=== PATIENT | male | born 1960 | race Asian ===

== ENCOUNTER 2021-01-20 12:14 | Outpatient (REF) | payer MEDICARE, SELFPAY ==
[2021-01-20 13:00] LABS: Hematocrit 44.6 % (42-52); Hemoglobin 14.9 g/dl (14.0-18.0); Mean Corpuscular HGB Conc 33.4 g/dl (31.0-36.0); Mean Corpuscular Hemoglobin 28.3 pg (27.0-33.0); Mean Corpuscular Volume 84.8 fL (80-98); Mean Platelet Volume 9.3 fL (9.4-12.4); Platelet Count 260 X10*3/uL (160-400); Red Blood Count 5.26 X10*6/uL (4.60-5.80); Red Cell Distribution Width 13.4 % (11.0-16.0)
[2021-01-20 13:19] LABS: Alanine Aminotransferase 15 U/L (0-40); Alkaline Phosphatase 88 U/L (39-117); Anion Gap 10 (12-20); Aspartate Amino Transferase 19 U/L (5-37); Bilirubin Direct 0.2 mg/dL (0.0-0.5); Bilirubin Total 0.3 mg/dL (0.0-1.0); Blood Urea Nitrogen 14 mg/dL (9-16); Calcium 9.1 mg/dL (8.4-10.2); Carbon Dioxide 27 mmol/L (22-29); Chloride 106 mmol/L (96-108); Cholesterol 193 mg/dL; Estimated Glomerular Filt Rate > 60; Glucose Random 84 mg/dL (60-115); HDL Cholesterol 33 mg/dL; LDL Cholesterol Calculated 137 mg/dl; Potassium 4.7 mmol/L (3.3-5.1); Sodium 138 mmol/L (135-145); Total Protein 7.1 g/dL (6.5-8.0); Triglycerides 116 mg/dL
[2021-01-20 13:40] LABS: Thyroid Stimulating Hormone 0.49 uIU/mL (0.32-4.0)
== END 2021-01-20 12:15 | disposition home or self-care (01) ==
LOC: HO.LAB 12:14
PROVIDERS: PCP Internal Medicine; Visit Provider Internal Medicine
DX: Z00.00 Encounter for general adult medical examination without abnormal findings (principal); Z12.11 Encounter for screening for malignant neoplasm of colon
CPT/HCPCS: 36415; 80048; 80061; 80076; 84443; 85027

== ENCOUNTER 2021-01-21 12:00 | Outpatient (REF) | payer MEDICARE, SELFPAY ==
[2021-01-21 12:07] LABS: Glucose Urine UA NEG (NEG); Leukocyte Esterase Urine NEG (NEG); Nitrite Urine NEG (NEG); Urine Blood NEG (NEG); Urine Ketones NEG (NEG); Urine Protein NEG (NEG-TRACE)
[2021-01-21 12:10] LABS: Appearance Urine CLEAR; Color Urine YELLOW
== END 2021-01-21 12:01 | disposition home or self-care (01) ==
LOC: HO.LNP 12:00
PROVIDERS: Visit Provider Internal Medicine
DX: Z00.00 Encounter for general adult medical examination without abnormal findings (principal)
CPT/HCPCS: 81003

== ENCOUNTER 2021-01-28 10:00 | Outpatient (REF) | payer MEDICARE, SELFPAY ==
[2021-02-01 12:57] LABS: TS Negative Control Passed; TS Panel A 0; TS Panel B 2; TS Positive Control Passed; TSpotTB Negative (SeeBelow)
== END 2021-01-28 10:01 | disposition home or self-care (01) ==
LOC: HO.LAB 10:00
PROVIDERS: PCP Internal Medicine; Visit Provider Internal Medicine
DX: Z11.1 Encounter for screening for respiratory tuberculosis (principal)
CPT/HCPCS: 36415; 86481

== ENCOUNTER 2022-09-22 08:54 | Outpatient (REF) | payer MEDICARE, SELFPAY ==
[2022-09-22 09:39] LABS: Hematocrit 47.4 % (42.0-52.0); Hemoglobin 15.9 g/dl (14.0-18.0); Mean Corpuscular HGB Conc 33.5 g/dl (31.0-36.0); Mean Corpuscular Hemoglobin 29.3 pg (27.0-33.0); Mean Corpuscular Volume 87.5 fL (80.0-98.0); Mean Platelet Volume 9.7 fL (9.4-12.4); Platelet Count 238 X10*3/uL (160-400); Red Blood Count 5.42 X10*6/uL (4.60-5.80); Red Cell Distribution Width 13.4 % (11.0-16.0); White Blood Count 8.3 X10*3/uL (4.8-10.8)
[2022-09-22 10:35] LABS: Alanine Aminotransferase 20 U/L (0-40); Albumin Level 3.9 g/dL (3.5-5.0); Alkaline Phosphatase 84 U/L (39-117); Anion Gap 13 (12-20); Aspartate Amino Transferase 18 U/L (5-37); Bilirubin Direct < 0.2 mg/dL (0.0-0.5); Bilirubin Total 0.4 mg/dL (0.0-1.0); Blood Urea Nitrogen 13 mg/dL (9-16); Carbon Dioxide 23 mmol/L (22-29); Chloride 106 mmol/L (96-108); Cholesterol 215 mg/dL; Estimated Glomerular Filt Rate > 60; Glucose Random 94 mg/dL (60-115); HDL Cholesterol 35 mg/dL; LDL Cholesterol Calculated 153 mg/dl; Potassium 4.6 mmol/L (3.3-5.1); Sodium 137 mmol/L (135-145); Triglycerides 137 mg/dL
[2022-09-22 10:36] LABS: Thyroid Stimulating Hormone 0.46 uIU/mL (0.32-4.0)
[2022-09-22 12:37] LABS: Appearance Urine Clear; Color Urine Yellow; Glucose Urine UA Negative (Negative); Leukocyte Esterase Urine Negative (Negative); Nitrite Urine Negative (Negative); PH 6.5 (5.0-9.0); Urine Blood Negative (Negative); Urine Ketones Negative (Negative); Urine Protein Negative (Neg-Trace)
[2022-09-25 06:34] LABS: TS Negative Control Passed; TS Panel A 0; TS Panel B 0; TS Positive Control Passed; TSpotTB Negative (Negative)
== END 2022-09-22 08:55 | disposition home or self-care (01) ==
LOC: HO.LAB 08:54
PROVIDERS: PCP Internal Medicine; Visit Provider Internal Medicine
DX: Z02.0 Encounter for examination for admission to educational institution (principal); F41.1 Generalized anxiety disorder; I10 Essential (primary) hypertension
CPT/HCPCS: 36415; 80048; 80061; 80076; 81003; 84443; 85027; 86481

== ENCOUNTER 2024-12-07 07:47 | Outpatient (REF) | payer MEDICARE, SELFPAY ==
[2024-12-07 09:01] LABS: Hematocrit 47.2 % (42.0-52.0); Hemoglobin 15.8 g/dl (14.0-18.0); Mean Corpuscular HGB Conc 33.5 g/dl (31.0-36.0); Mean Corpuscular Hemoglobin 28.5 pg (27.0-33.0); Mean Platelet Volume 9.6 fL (9.4-12.4); Platelet Count 239 X10*3/uL (160-400); Red Blood Count 5.55 X10*6/uL (4.60-5.80); Red Cell Distribution Width 13.5 % (11.0-16.0); White Blood Count 9.4 X10*3/uL (4.8-10.8)
[2024-12-07 09:30] LABS: Alanine Aminotransferase 19 U/L (0-40); Albumin Level 4.1 g/dL (3.5-5.0); Alkaline Phosphatase 96 U/L (39-117); Anion Gap 10 (12-20); Aspartate Amino Transferase 27 U/L (5-37); Bilirubin Direct 0.2 mg/dL (0.0-0.5); Bilirubin Total 0.4 mg/dL (0.0-1.0); Blood Urea Nitrogen 20 mg/dL (9-16); Calcium 8.8 mg/dL (8.4-10.2); Carbon Dioxide 24 mmol/L (22-29); Chloride 109 mmol/L (96-108); Cholesterol 164 mg/dL (<200); Estimated Glomerular Filt Rate > 60; Glucose Random 106 mg/dL (60-115); HDL Cholesterol 31 mg/dL (>40); LDL Cholesterol Calculated 115 mg/dL (<100); Potassium 4.2 mmol/L (3.3-5.1); Sodium 139 mmol/L (135-145); Total Protein 7.1 g/dL (6.5-8.0); Triglycerides 94 mg/dL (<150)
[2024-12-07 09:46] LABS: Prostate Specific Antigen Scr 0.91 ng/mL (<0.05-4.0)
[2024-12-07 09:47] LABS: Thyroid Stimulating Hormone 0.66 uIU/mL (0.32-4.0)
== END 2024-12-07 07:48 | disposition home or self-care (01) ==
LOC: HO.LAB 07:47
PROVIDERS: PCP Internal Medicine; Visit Provider Internal Medicine
DX: Z00.00 Encounter for general adult medical examination without abnormal findings (principal); Z12.5 Encounter for screening for malignant neoplasm of prostate; I10 Essential (primary) hypertension; F41.1 Generalized anxiety disorder; E78.5 Hyperlipidemia, unspecified
CPT/HCPCS: 36415; 80048; 80061; 80076; 84153; 84443; 85027; 99212

== ENCOUNTER 2024-12-07 07:47 | Outpatient (AMB) | payer MEDICARE, SELFPAY ==
--- NOTE | 2024-12-07 07:58 | A.OFFVIS_ITS ---
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 - Reports high cholesterol levels in the past, medication prescribed for cholesterol management felt ineffective, and patient compliance issues due to financial constraints and lack of insurance. - Has not conducted recent blood tests t o monitor the effect of cholesterol medication. - Expresses cold feet on occasion and ve rtigo when standing for extended periods. - Lives independently, with occasional h elp from friends but no formal care. [facility] Medical History (Updated 12/07/24 @ 08:26 by Newton Hunter MD) Hyperlipidemia Essential hypertension Generalized anxiety disorder Surgical History History of mandibular surgery Family History Mother No problems noted. Father No problems noted. Son Autism Social History Housing: House Alcohol intake: never Patient Tobacco Use Status: Current everyday Tobacco user Tobacco use type: Pipe Cigarettes Per Day: 3 service: No Current occupational status: disabled Questionnaire Medicare Wellness Checkup [age] 65-67 What gender do you identify with?: male During the past 4 weeks, how much have you been bothered by emotional problems such as feeling anxious, depressed, irritable, sad or downhearted, and blue?: quite a bit During the past 4 weeks, has your physical & emotional health limited your social activities with family, friends, neighbors, or groups?: not at all During the past 4 weeks, how much bodily pain have you generally had?: no pain During the past 4 weeks, was someone available to help you if you needed & wanted help?: no, not at all During the past 4 weeks, what was the hardest physical activity you could do for at least 2 minutes?: light Can you get to places out of walking distance without help? (For eg., can you travel alone on buses, taxis or drive your car?): Yes Can you go shopping for groceries or clothes without someone's help?: Yes Can you prepare your own meals?: Yes Can you do your housework without help?: Yes Because of any health problems, do you need the help of another person with your personal care needs such as eating, bathing, dressing or getting around the house?: No Can you handle your own money without help?: Yes During the past 4 weeks, how would you rate your health in general?: good During the past 4 weeks how have things been going for you?: very well; could hardly better Are you having difficulties driving your car?: no Do you always fasten your seat belt when you are in a car?: yes, usually During past 4 weeks, have you been bothered by the following: never: Falling or dizzy when standing up, Sexual problems?, Trouble eating well?, Teeth or denture problems?, Problems using the telephone? and Tiredness or fatigue? Have you fallen 2 or more times in the past year?: No Are you afraid of falling?: Yes Are you a smoker?: yes, and I might quit During the past 4 weeks, how many drinks of wine, beer, or other alcoholic beverages did you have?: no alcohol at all Do you exercise for about 20 minutes 3 or more times a week?: no, I usually do not exercise this much Have you been given information to help with the following?: yes: Keeping track of your medications? and no: Hazards in your house that might hurt you? How often do you have trouble taking medicines the way you have been told to take them?: I do not have to take medicine How confident are you that you can control & manage most of your health problems?: very confident What is your race?: Mini Mental State Exam (MMSE) Orientation What is the (year) (season) (date) (day) (month)?: year, date, day and month Score Score: 4 Activity of Daily Living Bathing - sponge bath, tub bath or shower: receives no assistance (gets in/out by self, if usual bathing means Dressing - getting clothes from closets & drawers, including inner/outer garments & fasteners.: gets clothes & gets completely dressed without help Toileting - going to the 'toilet room' for urine/bowel elimination & cleaning self/arranging clothes: goes to toilet room, cleans self, arranges clothes without help Transfer: moves in & out of bed and chair without help (may use support object) Continence: controls urination/bowel movements completely by self Feeding: feeds self without help Total Score: 0 Using telephone: independent Traveling: independent Shopping: independent Preparing meals: independent Housework: independent Taking medicine: independent Managing money: independent PHQ-9 Over the last 2 weeks, how often have you been bothered by any of the following problems? 1. Little interest or pleasure in doing things: several days 2. Feeling down, depressed, or hopeless: not at all 3. Trouble falling or staying asleep, or sleeping too much: not at all 4. Feeling tired or having little energy: several days 5. Poor appetite or overeating: not at all 6. Feeling bad about yourself - or that you are a failure or have let yourself or your family down: several days 7. Trouble concentrating on things, such as reading the newspaper or watching television: not at all 8. Moving or speaking so slowly that other people could have noticed. Or the opposite - being so fidgety or restless that you have been moving around a lot more than usual: not at all 9. Thoughts that you would be better off or of hurting yourself in some way: not at all Total score: 3 Depression Screening Interpretation: Negative Depression Screening Done: Yes 37524 - PHQ-9 Billing: Patient declined-do not bill Source: Developed by Drs. Joshua Mckeon, Yolanda Loyd, Seun Bhagat and colleagues, with an educational juana from [employer]. Physical Exam Vital Signs: Last Vital Signs Temp 96.9 F 12/07/24 07:59 Pulse 72 12/07/24 07:59 Resp 18 12/07/24 07:59 BP 126/66 12/07/24 07:59 Pulse Ox 96 12/07/24 07:59 Oxygen Delivery Method Room Air 12/07/24 07:59 BMI result Body Mass Index 30.7 Balance: normal Romberg: negative Tandem Walk: able to Walk and Turn:able to Rise from sit to stand: able to Hearing Whisper test:Pass [place] of Care and Screening schedule discussed with patient. Const General: cooperative and healthy appearing Nutritional Appearance: well nourished Orientation/consciousness: patient oriented x3 Limitations: no limitations HEENT Head: Yes normal to inspection Eyes General: appearance normal, both eyes and all related structures Neck Neck: Yes normal visual inspection Chest Chest palpation & inspection: normal palpation of entire chest wall Resp Effort & Inspection: normal respiratory effort Neuro General: patient oriented x3 Assessment & Plan Assessment & Plan (1) Essential hypertension: Code(s): I10 - Essential (primary) hypertension Plan: BP in range. (2) Generalized anxiety disorder: Code(s): F41.1 - Generalized anxiety disorder Plan: Patient sees a psychiatrist. Continue current meds. (3) Hyperlipidemia: Code(s): E78.5 - Hyperlipidemia, unspecified Plan: BW ordered, encouraged to restart the statins (4) Annual physical exam: Code(s): Z00.00 - Encounter for general adult medical examination without abnormal findings Plan: Cologaurd test ordered. Plan History of Present Illness Social History - The patient lives alone. - Occasionally receives assistance from friends. - Lacks insurance coverage for medications and pays [id number]. Review of Systems - Cardiovascular: Reports high cholesterol levels. - Neurological: Reports dizziness upon standing. - Musculoskeletal: Reports cold feet. - Gastrointestinal: Denies recent bowel irregularities but acknowledges the need for colon cancer screening. Physical Exam General: Cooperative and healthy appearing Nutritional Appearance: Well nourished Orientation/consciousness: Patient oriented x3 Limitations: No limitations Head: Normal to inspection General: Appearance normal, both eyes and all related structures Neck: Normal visual inspection Chest: Normal palpation of entire chest wall Respiratory: N ormal respiratory effort Neurology: Patient oriented x3, reports feeling cold feet and dizziness when standing for long periods. Results Plan 1. High Cholesterol - Blood test planned to assess levels and evaluate current treatment. - Financial implications discussed, involves paying [id number] for medication without insurance. 2. Cold Feet - Assessment planned post-blood test, consider differential diagnosis including peripheral vascular disease. 3. Dizziness Upon Standing - Further evaluation contingent on blood test completion. 4. Possible Colon Cancer Screening - Advised to complete Cologuard at home, a non-invasive testing method. Discussion Notes During the consultation, we discussed the management and evaluation of high cholesterol considering the patient reports perceived inefficacy of prescribed medications and financial burden due to lack of insurance coverage. A blood test was advised to determine cholesterol levels and to inform treatment decisions. Concerns were raised about cold feet and dizziness upon standing, suggesting further assessment might be needed following laboratory results. The necessity of a colon cancer screening was emphasized, and I provided instructions on using the Cologuard kit at home. The patient acknowledged understanding of all instructions and agreed to comply with recommended testing and follow-up di scussions. Patient Instructions - Go to the hospital laboratory for a scheduled blood test today. - Complete the Cologuard test when it arrives and send it back as directed. - Consult with friends or seek help if you face challenges completing tasks. - Report to the office if symptoms of dizziness worsen or persist. - Follow medication directions, and discuss any changes resulting from lab tests with us. Orders: Orders Complete Blood Count no Diff Today I10 - Essential (primary) hypertension Liver Panel Today I10 - Essential (primary) hypertension UA and rflx microscopic Today I10 - Essential (primary) hypertension Basic Metabolic Panel Today I10 - Essential (primary) hypertension Lipid Panel Today I10 - Essential (primary) hypertension Thyroid Stimulating Hormone Today I10 - Essential (primary) hypertension Prostate Specific Antigen Scr Today I10 - Essential (primary) hypertension Quality Reporting (2019) Depression/Bipolar (159/160/161/177) PHQ-9: Total score: 3 Coding Level of Care Code Medicare Subsequent (G0439) Est Pt Level 4 (94265) Diagnoses Essential hypertension I10 Generalized anxiety disorder F41.1 Hyperlipidemia E78.5 Annual physical exam Z00.00 Advance Care Planning Advance Care Planning discussion: Declined forms (Patient unable to understand the importance of filling these forms.)
[2024-12-07 07:59] VITALS: BP 126/66; PULSE 72; RESP 18; TEMP 36.1; O2SAT 96; BMI 30.7
== END 2024-12-07 08:29 | disposition home or self-care (01) ==
PROVIDERS: PCP Internal Medicine; Visit Provider Internal Medicine
DX: Z00.00 Encounter for general adult medical examination without abnormal findings (principal); I10 Essential (primary) hypertension; F41.1 Generalized anxiety disorder; E78.5 Hyperlipidemia, unspecified

== ENCOUNTER 2025-06-14 08:34 | Outpatient (REF) | payer MEDICARE, SELFPAY ==
[2025-06-14 10:45] LABS: Hematocrit 48.8 % (42.0-52.0); Hemoglobin 16.0 g/dl (14.0-18.0); Mean Corpuscular HGB Conc 32.8 g/dl (31.0-36.0); Mean Corpuscular Hemoglobin 28.3 pg (27.0-33.0); Mean Corpuscular Volume 86.2 fL (80.0-98.0); NRBC Abs Auto 0.000 X10*3/uL (0.0-0.012); NRBC Pct Auto 0.0 /100WBC (0.0-0.2); Platelet Count 279 X10*3/uL (160-400); Red Blood Count 5.66 X10*6/uL (4.60-5.80); White Blood Count 10.3 X10*3/uL (4.8-10.8)
[2025-06-14 12:24] LABS: Thyroid Stimulating Hormone 0.63 uIU/mL (0.32-4.0)
[2025-06-14 12:43] LABS: Anion Gap 13 (12-20)
[2025-06-14 12:48] LABS: Alanine Aminotransferase 25 U/L (0-40); Albumin Level 4.1 g/dL (3.5-5.0); Alkaline Phosphatase 106 U/L (39-117); Aspartate Amino Transferase 27 U/L (5-37); Blood Urea Nitrogen 16 mg/dL (9-16); Calcium 8.8 mg/dL (8.4-10.2); Carbon Dioxide 26 mmol/L (22-29); Chloride 104 mmol/L (96-108); Cholesterol 162 mg/dL (<200); Estimated Glomerular Filt Rate > 60; HDL Cholesterol 48 mg/dL (>40); Potassium 4.6 mmol/L (3.3-5.1); Sodium 138 mmol/L (135-145); Total Protein 7.2 g/dL (6.5-8.0); Triglycerides 115 mg/dL (<150)
== END 2025-06-14 08:35 | disposition home or self-care (01) ==
LOC: HO.LAB 08:34
PROVIDERS: PCP Internal Medicine; Visit Provider Internal Medicine
DX: I10 Essential (primary) hypertension (principal)
CPT/HCPCS: 36415; 80048; 80061; 80076; 83036; 84443; 85027; 96127; 99212

== ENCOUNTER 2025-06-14 08:34 | Outpatient (AMB) | payer MEDICARE, SELFPAY ==
--- NOTE | 2025-06-14 08:59 | A.OFFPC_ITS ---
Vital Signs 06/14/25 09:04 Height 5 ft 2 in Weight 166 lb 4 oz BMI 30.4 BP 140/66 H Blood Pressure Location Lt brachial Position Sitting Pulse 74 Pulse Source Pulse Oximeter Temp 97.3 F Temp Source Temporal Artery Scan Pulse Oximetry (%) 98 Oxygen Delivery Method Room Air Intake Visit Reasons: 6mth f/u Intake Note: Patient is here to follow up on HLD, HTN. Agile Java Developer Required: No Pediatric Allergist: Not Required per policy Accompanied by: Self / Same As Patient Allergies No Known Allergies (No Known Allergies*) Allergy (Verified 06/14/25 09:33) Medication List - Last Reconciled 06/14/25 by Newton Hunter MD clonazepam 1 mg PO TID fluoxetine 40 mg PO QAM nortriptyline 25 mg PO BEDTIME rosuvastatin 10 mg PO DAILY Tobacco use date assessed: 06/14/25 Fall risk assessment: 1 Fall in past year Last assessed Fall Risk: 06/14/25 Dental Screening Dental Screen Date: 06/14/25 Did you have a dental visit in the last 12 months?: No Did you have a dental problem in the last 6 months where you did not have access to dental care?: No Was dental information given to patient?: No HPI HPI Comments History of Present Illness Details History of Present Illness - The patient is a 64 year old male pres enting with bilateral knee pain and a burning sensation in his feet. - He reports daily pain in both knees, w hich is not severe but characterized by a sensation of getting stuck after standing for a prolonged period, such as 20 minutes. - The pain is not specifically worse in the morning or at night. - He also experiences a burning, warm, o r tight sensation in both feet, which occurs almost every night, exclusively while he is sleeping. - He denies any similar symptoms in his hands. - His psychiatric conditions are managed by a psychiatrist, and his medications include nortriptyline and fluoxetine. - He also takes amitriptyline, which he notes is for his head and for the burning sensation in his feet. - He reports he has not completed the Co loguard test for colon cancer screening that was previously sent to him. Social History - Employment: The patient is not current ly working. - Substance Use: The patient denies alco hol consumption. Results [facility] Medical History (Updated 12/07/24 @ 08:26 by Newton Hunter MD) Hyperlipidemia Essential hypertension Generalized anxiety disorder Surgical History History of mandibular surgery Family History Mother No problems noted. Father No problems noted. Son Autism Social History Housing: House Alcohol intake: never Patient Tobacco Use Status: Current everyday Tobacco user Tobacco use type: Cigarette and Pipe Cigarette Packs Per Day: 0.5 Cigarettes Per Day: 3 e-Cigarette/Vaping Use: Never Used Second Hand Smoke Exposure: Yes service: No Current occupational status: disabled Cognitive needs: No Hearing needs: No Vision needs: No Questionnaire PHQ-9 Over the last 2 weeks, how often have you been bothered by any of the following problems? 1. Little interest or pleasure in doing things: not at all 2. Feeling down, depressed, or hopeless: not at all 3. Trouble falling or staying asleep, or sleeping too much: not at all 4. Feeling tired or having little energy: not at all 5. Poor appetite or overeating: not at all 6. Feeling bad about yourself - or that you are a failure or have let yourself or your family down: not at all 7. Trouble concentrating on things, such as reading the newspaper or watching television: not at all 8. Moving or speaking so slowly that other people could have noticed. Or the opposite - being so fidgety or restless that you have been moving around a lot more than usual: not at all 9. Thoughts that you would be better off or of hurting yourself in some way: not at all Total score: 0 Depression Screening Interpretation: Negative Depression Screening Done: Yes Source: Developed by Drs. Joshua Mckeon, Yolanda Loyd, Seun Bhagat and colleagues, with an educational juana from [employer]. Thrive Questionnaire Date Thrive assessed: 06/14/25 I am a: Patient What is your living situation today?: I have a steady place to live Within the past 12 months, did the food you bought not last and you didn't have the money to get more?: Often true Within the past 12 months, did you worry whether your food would run out before you got money to buy more?: I choose not to answer this question Do you have trouble paying for medicines?: I choose not to answer this question Do you have trouble getting transportation to medical appointments?: I choose not to answer this question Do you have trouble paying your heating and electricity bill?: I choose not to answer this question Do you have trouble taking care of your child, family member or friend?: I choose not to answer this question Do you have trouble with day-to-day activities such as bathing, preparing meals, shopping, managing finances, etc.?: I choose not to answer this question Are you currently unemployed and looking for a job?: I choose not to answer this question Are you interested in more education?: I choose not to answer this question Please select the resources that you would like help with: None Currently or been in a relationship where the following occur: I choose not to answer THRIVE Score: 1 AUDIT C Alcohol Use Questionnaire (AUDIT-C) 1. How often do you have a drink containing alcohol?: Never Total Score: 0 LIANA-7 AMB Questionnaire LIANA-7 Date LIANA - 7 assessed: 06/14/25 Feeling nervous, anxious, or on edge: 0 = Not at all Not being able to stop or control worryin = Not at all Worrying too much about different things: 0 = Not at all Trouble relaxin = Not at all Being so restless that it is hard to sit still: 0 = Not at all Becoming easily annoyed or irritable: 0 = Not at all Feeling afraid as if something awful might happen: 0 = Not at all Total LIANA-7 score (0-4 normal; 5-9 mild; 10-14 moderate; 15-21 severe): 0 Source: Developed by Drs. Joshua Mckeon, Yolanda Loyd, Seun Bhagat and colleagues, with an educational juana from [employer]. Review of Systems Narrative Review of Systems - Musculoskeletal: Reports daily bilateral knee pain with a sensation of getting stuck after prolonged standing. - Neurological: Reports a burning, warm, or tight sensation in both feet that occurs only at night during sleep. - Denies paresthesia in his hands. - Respiratory: Denies difficulty breathing. Physical exam (Primary Care) Vital Signs: Last Vital Signs Temp 97.3 F 06/14/25 09:04 Pulse 74 06/14/25 09:04 BP 140/66 H 06/14/25 09:04 Pulse Ox 98 06/14/25 09:04 Oxygen Delivery Method Room Air 06/14/25 09:04 BMI result Body Mass Index 30.4 Tobacco/Smoking Status: Tobacco use Status Tobacco use date assessed 06/14/25 06/14/25 09:10 Patient Tobacco Use Status Current everyday Tobacco 06/14/25 09:03 Tobacco use type Cigarette,Pipe 06/14/25 09:10 e-Cigarette/Vaping Use Never Used 06/14/25 09:10 PHQ-9: PHQ-9 Score PHQ-9: Total score 0 06/14/25 09:10 Depression Screening Interpretation: Negative Thrive Assessment: Date of Thrive Assessment Date Thrive assessed 06/14/25 06/14/25 09:03 Currently or been in a relationship where the following occur: I choose not to answer Narrative Physical Exam General: Appearance normal, both eyes and all related structures Nutritional Appearance: Well nourished Orientation/consciousness: Patient oriented x3 Limitations: Knee pain when standing for long periods, feet burning sensation at night Head: Normal to inspection Neck: Normal visual inspection Chest: Normal palpation of entire chest wall Respiratory: Normal respiratory effort Neurology: Patient oriented x3, reflexes are okay Coding Level of Care Code Est Pt Level 4 (21576) Add On Problem Visit Only Diagnoses Essential hypertension I10 Assessment & Plan Assessment & Plan (1) Essential hypertension: Code(s): I10 - Essential (primary) hypertension Category: Medical Plan Plan - Blood work will be ordered to screen for diabetes and vitamin deficiency as potential causes for his lower extremity paresthesia. - A Cologuard test will be ordered for colon cancer screening, as the patient agreed to complete it. - Patient was informed that his current amitriptyline is an appropriate treatment for his neuropathic symptoms, and his psychiatrist may consider increasing the dose. - A referral to a network support technician for nail care was offered, but the patient declined, stating he would seek care at a nail salon. - The patient was instructed to proceed for his blood draw today. - Follow-up will be scheduled to discuss any abnormal lab results. Discussion Notes I discussed with the patient the need for blood work to evaluate his foot symptoms for potential causes like diabetes or a vitamin deficiency. I also emphasized the importance of colon cancer screening and confirmed he would complete the Cologuard test, which I will order for him. I explained the collection process for the test. We reviewed that his current medication, amitriptyline, is a good treatment for his burning foot sensation. I offered a referral to a network support technician for management of his toenails, but he declined, indicating he has alternative arrangements for care. I instructed him to go for the lab tests today and that we would be in touch regarding the results. Patient Instructions - Please go to the lab to have your blood drawn today. - This is to check for causes of the burning feeling in your feet, such as diabetes. - A Cologuard test kit for colon cancer screening will be sent to your home. - Please follow the instructions in the box to collect a stool sample and mail it back. - Continue taking all your medications as prescribed by your psychiatrist. - Ensure your toenails are trimmed properly. - We will contact you if there are any concerning findings on your blood work. Orders: Orders Basic Metabolic Panel Today I10 - Essential (primary) hypertension Lipid Panel Today I10 - Essential (primary) hypertension Thyroid Stimulating Hormone Today I10 - Essential (primary) hypertension Complete Blood Count no Diff Today I10 - Essential (primary) hypertension Liver Panel Today I10 - Essential (primary) hypertension Hemoglobin A1c Today I10 - Essential (primary) hypertension Referrals Cologuard Test Z12.11 - Encounter for screening for malignant neoplasm of colon Medications: Refilled rosuvastatin 10 mg PO DAILY 90 tabs 1RF
[2025-06-14 09:04] VITALS: BP 140/66; PULSE 74; TEMP 36.3; O2SAT 98; BMI 30.4
== END 2025-06-14 09:35 | disposition home or self-care (01) ==
LOC: HO.HMCH 08:34
PROVIDERS: PCP Internal Medicine; Visit Provider Internal Medicine
DX: I10 Essential (primary) hypertension (principal)

== ENCOUNTER 2025-06-26 14:56 | Outpatient (REF) | payer MEDICARE, SELFPAY ==
[2025-06-26 15:14] LABS: Appearance Urine Clear; Glucose Urine UA Negative (Negative); PH 6.5 (5.0-9.0); Specific Gravity - Urine 1.015 (1.005-1.025)
== END 2025-06-26 14:57 | disposition home or self-care (01) ==
LOC: HO.LNP 14:56
PROVIDERS: Visit Provider Internal Medicine
DX: I10 Essential (primary) hypertension (principal)
CPT/HCPCS: 81003